=== PATIENT | female | born 1965 | race Caucasian/White ===

== ENCOUNTER 2016-12-02 00:06 | Emergency (ER) | payer BC ==
[~2016-12-02] VITALS: Ht 165.1 cm; Wt 75.7 kg
--- NOTE | 2016-12-02 00:12 | NUR ---
To bed 6 a 51 yo female bibself with c/o broken right ankle. Per patient she slipped on the hotel while she was vacationing yesterday in [place]. She checked into the hospital in [place] and was advised for surgery cause of broken surgery. Patient just came from vacation, [id number], "unable to ambulate." Right ankle/foot look swollen, distal toes pink and skin warm to touch. Comfort measures initiated. Awaiting for er md pryor.
--- NOTE | 2016-12-02 00:15 | NUR ---
Dr Brannon at bedside for eval.
--- NOTE | 2016-12-02 00:23 | NUR ---
elevated right foot, icepack applied.
[2016-12-02] MEDS ORDERED: HYDROCODONE/APAP 5/325MG 1 EACH TABLET ONE (01:39)
--- NOTE | 2016-12-02 01:57 | NUR ---
Patient discharged to home in stable condition. Written and verbal after care instructions given. Patient verbalizes understanding of instruction. Patient with short leg split on the right lower extremity, demonstrated successfully use of crutches. Family is going to drive patient home.
[2016-12-02] MEDS ORDERED: HYDROCODONE/APAP 5/325MG 1 EACH TABLET PO ONE (02:00)
[2016-12-02 02:40] VITALS: BP 136/76
== END 2016-12-02 02:42 | disposition home or self-care (01) ==
LOC: ER 00:07
DX: S82.831A Other fracture of upper and lower end of right fibula, initial encounter for closed fracture (principal); W18.30XA Fall on same level, unspecified, initial encounter; Y93.89 Activity, other specified; Y92.89 Other specified places as the place of occurrence of the external cause; Y99.8 Other external cause status
CPT/HCPCS: 29515; 73590; 73610; 73630; 99284; A4606; Z7610